=== PATIENT | female | born 1965 | race Caucasian/White ===

== ENCOUNTER → 2018-06-09 | Outpatient (CLI) | payer BC, OTHER ==
[~2018-06-09] VITALS: Ht 165.1 cm; Wt 84.8 kg
[~2018-06-09] MED LIST: ALTACE5 M1 PO; ASPIRIN325 PO; B COMPLEX-VITA1 EACH PO; CHANTIX1 MG; CLARITIN10 MG PO; COZAAR 25 MG TA25 M1 PO; LIPITOR40 MG PO; LOPID600 MG PO; LOPRESSOR 50 MG50 M1 PO; NORVASC10 MG PO; OMEPRAZOLE20 M1 PO; SUPER B COMPLEX
--- NOTE | ~2018-06-09 | CATHLAB ---
[facility] [address] [place] [address] INVASIVE PROCEDURE REPORT Name: ROBERTMICHAEL Room #: REG Harpal#: [id number] Admission: 06/09/18 Attend Phys: Ty Akins, Discharge: Date of : 69 Date of Service: 06/09/18 1140 Report #: [id number] THIS REPORT FOR: //name// APPROVED REPORT Study performed: 06/09/2018 07:47:07 Patient Details Patient Status: Out-Patient Room #: The patient is a 53 year-old female Event Personnel Ty Akins Litigation Examiner, Olga Borges RN RN, Patria Velazquez RTR, Zuly Villanueva David Monitor Procedures Performed Art Access - R femoral artery* Left Heart Cath w/or w/o Coronaries [id number] [facility] Abdominal Aortography [id number] Hemostasis w/ Mynx 81244 Initial Mod Sed Same Phys/QHP Gr5y 293168 14852 Mod Sed Same Phys/QHP Ea 723032 Indication Chest pain Procedure Narrative The Right Groin^ was infiltrated with 1% Lidocaine subcutaneous anesthesia. A PINNACLE 6FR Sheath #[id number] sheath was inserted into the RFA^. Coronary angiography was performed using coronary diagnostic catheters. The right coronary system was accessed and visualized with a JR4 catheter. The left coronary system was accessed and visualized with a JL4 catheter. The left ventricle was accessed and visualized with a Pigtail catheter. Left ventriculogram was performed in 30 degree projection. An aortogram of the abdominal aorta was performed. Pre-demployment femoral angiogram was performed . Closure device was deployed with a 6 Fr MYNXGRIP 6/7F #[id number]. The patient tolerated the procedure well and there were no complications associated with the procedure. There was no hematoma. Intraoperative Conscious Sedation Sedation start time: 08:44 Case end Time: 09:01 Fentanyl 50 mcg Versed 1 mg Fluoro Time: 1.33 minutes Dose: DAP 2240 cGycm2 226 mGy [facility] [address] [place] [address] INVASIVE PROCEDURE REPORT Name: BURKE JONES ANN Room #: DARYL Rowan#: [id number] Admission: 06/09/18 Attend Phys: Ty Akins, Discharge: Date of : 69 Date of Service: 06/09/18 1140 Report #: [id number] Contrast Type and Amount: Visipaque 105 ml Hemodynamics The aortic pressure is 137/71 mmHg with a mean of 105 mmHg. The left ventricular pressure is 140/14 mmHg with a mean of mmHg. The left ventricular end diastolic pressure is 28 mmHg. Conclusion #1 normal left ventricular size and systolic function EF 60% #2 abdominal aortogram reveals mild aortic ectasia no occlusive disease no aneurysm. Bilateral renal arteries appear widely patent #3 coronary anatomy reveals a predominantly codominant system. Circumflex is more dominant in distribution. There is mild plaquing and no significant occlusive disease is noted. Recommendations and plan: Continue aggressive risk factor modification. Etiology of chest pain appears to be noncardiac. Smoking cessation strongly recommended. <ELECTRONICALLY SIGNED> By: Ty Akins MD, FACC 06/09/18 1140 1140 1140 Ty Aknis MD, FACC /INF
[2018-06-09 07:29] VITALS: BP 139/94
[2018-06-09 07:49] LABS: HEMATOCRIT 39.7 % (37.0-47.0); HEMOGLOBIN 13.6 gm/dL (12.0-15.0); MCH 31.4 pg (26.0-34.0); MCHC 34.2 g/dL (28.0-37.0); MCV 91.9 fL (80.0-100.0); RBC 4.32 mil/uL (4.20-5.00); RDW 13.6 % (10.5-14.5); WBC 5.5 thou/uL (4.0-11.0)
[2018-06-09 07:58] LABS: CALCIUM 9.7 mg/dL (8.5-10.1); CREATININE 1.2 mg/dL (0.6-1.0); POTASSIUM 4.8 mmol/L (3.5-5.1)
[2018-06-09 08:07] LABS: PROTIME 10.1 Seconds (9.3-11.4)
== END | disposition home or self-care (01) ==
LOC: CATH 06:55
PROVIDERS: Internal Medicine Cardiovascular Disease
DX: I25.10 Atherosclerotic heart disease of native coronary artery without angina pectoris (principal); I77.811 Abdominal aortic ectasia; I10 Essential (primary) hypertension; E78.5 Hyperlipidemia, unspecified; K21.9 Gastro-esophageal reflux disease without esophagitis; F17.210 Nicotine dependence, cigarettes, uncomplicated; Z82.49 Family history of ischemic heart disease and other diseases of the circulatory system; Z98.890 Other specified postprocedural states; Z79.899 Other long term (current) drug therapy; Z79.82 Long term (current) use of aspirin

== ENCOUNTER → 2019-09-21 | Outpatient (CLI) | payer BC | LOC: SJCVCIMAG 12:51 → SJCVC 12:51 | DX: R09.89 Other specified symptoms and signs involving the circulatory and respiratory systems (principal); R06.00 Dyspnea, unspecified; E78.00 Pure hypercholesterolemia, unspecified; R53.83 Other fatigue; F17.200 Nicotine dependence, unspecified, uncomplicated; Z82.49 Family history of ischemic heart disease and other diseases of the circulatory system ==

== ENCOUNTER → 2019-09-21 | Outpatient (CLI) | payer OTHER | LOC: CAT 13:34 | DX: Z13.6 Encounter for screening for cardiovascular disorders (principal); I25.10 Atherosclerotic heart disease of native coronary artery without angina pectoris; E78.00 Pure hypercholesterolemia, unspecified ==